=== PATIENT | female | born 1995 | race Caucasian/White ===

== ENCOUNTER 2020-05-04 03:40 | Emergency (ER) | payer OTHER ==
[~2020-05-04] VITALS: Ht 157.5 cm; Wt 77.1 kg
[2020-05-04 04:20] LABS: ABSOLUTE NEUTROPHILS 4.7 thou/uL (1.4-8.2); BASOPHILS 0.6 % (0.0-2.0); HEMATOCRIT 38.8 % (37.0-47.0); LYMPHOCYTES 34.1 % (24.0-44.0); MCH 29.8 pg (26.0-34.0); MCHC 33.4 g/dL (28.0-37.0); MCV 89.2 fL (80.0-100.0); MONOCYTES 7.3 % (1.0-8.0); PLATELET COUNT 227 thou/uL (150-400); RBC 4.34 mil/uL (4.20-5.00); RDW 13.8 % (10.5-14.5); WBC 8.4 thou/uL (4.0-11.0)
[2020-05-04 04:23] LABS: CALCIUM 9.3 mg/dL (8.5-10.1); CREATININE 0.8 mg/dL (0.6-1.0); POTASSIUM 4.2 mmol/L (3.5-5.1)
[2020-05-04 04:29] LABS: ALBUMIN 3.9 g/dL (3.4-5.0); TOTAL BILIRUBIN 0.3 mg/dL (0.2-1.0); TOTAL PROTEIN 7.2 g/dL (6.4-8.2)
[2020-05-04 04:59] LABS: URINE BILIRUBIN NEGATIVE (Negative); URINE BLOOD NEGATIVE (Negative); URINE CLARITY CLEAR; URINE COLOR YELLOW; URINE GLUCOSE-RANDOM* NEGATIVE (Negative); URINE KETONES NEGATIVE (Negative); URINE LEUKOCYTES-REFLEX NEGATIVE (Negative); URINE PROTEIN (DIPSTICK) NEGATIVE (Negative); URINE UROBILINOGEN 0.2 E.U./dl (0.2-1.0)
[2020-05-04 05:06] LABS: URINE NITRITE-REFLEX POSITIVE (Negative)
[2020-05-04 05:24] LABS: BACTERIA-REFLEX >30 Many /HPF (None Seen); CASTS None Seen /LPF (None Seen); CRYSTALS None Seen /LPF (None Seen); MUCUS 4-6 Moderate strn/LPF (None Seen); SQUAMOUS 4-10 Moderate /LPF (0-3); URINE RBC 3-10 Few /HPF (0-2); URINE WBC-REFLEX 6-15 Few /HPF (0-5)
[2020-05-04] MEDS ORDERED: AUGMENTIN 875-1 EACH PO (06:54)
[2020-05-04] MEDS ORDERED: CIPROFLOXACIN500 M1 PO (06:56)
[2020-05-04] MEDS ORDERED: FLAGYL500 M1 PO (06:56)
[2020-05-04] MEDS ORDERED: ZOFRAN ODT4 MG PO (06:57)
[2020-05-04 07:31] VITALS: BP 120/78
== END 2020-05-04 07:31 | disposition home or self-care (01) ==
LOC: ER 03:40
PROVIDERS: Emergency Medicine
DX: K52.9 Noninfective gastroenteritis and colitis, unspecified (principal); J45.909 Unspecified asthma, uncomplicated; Z85.43 Personal history of malignant neoplasm of ovary; Z88.1 Allergy status to other antibiotic agents; R11.10 Vomiting, unspecified